=== PATIENT | female | born 1970 | race Caucasian/White ===

== ENCOUNTER 2024-05-31 10:02 | Emergency (ER) | payer SELFPAY ==
--- NOTE | 2024-05-31 11:31 | RAD REPORT ---
EXAM DESCRIPTION: CT - Spine Lumbar Wo Con - 05/31/2024 10:37 am CLINICAL HISTORY: PAIN COMPARISON: No comparisons TECHNIQUE: Axial noncontrast CT imaging of the lumbar spine was performed with coronal and sagittal re-formatted images. All CT scans are performed using dose optimization technique as appropriate and may include automated exposure control or mA/KV adjustment according to patient size. FINDINGS: No acute lumbar spine fracture seen. No aggressive marrow pattern or malalignment. Paraspinal tissues are normal in thickness. No paraspinal abscess or hematoma seen. Intervertebral disc disease assessment is inherently limited by CT. Within these limitations, no high -grade canal stenosis suspected. Multilevel lower lumbar degenerative changes are present with modera te advanced degrees of disc height loss at L3-4 through L5-S1. Minimal anterolisthesis of L5 over S1 measuring 3 mm. [id number] degrees of neural foraminal narrowing at those levels, most pronounc ed at L5-S1 bilaterally due to discogenic and facet changes. IMPRESSION: No acute lumbar spine fracture or subluxation. Multilevel degenerative changes of the lower lumbar spine as above, most pronounced at L5-S1 contribu ting to up to moderate bilateral neural foraminal narrowing. Please consider MRI follow-up for assessment of disc disease and involvement of the neural structures if clinically desired.
[2024-05-31 13:45] LABS: Absolute Basophils 0.1 K/uL (0-0.5); Absolute Eosinophils 0.3 K/uL (0-0.5); Absolute Lymphocytes (CBC) 1.6 K/uL (0.7-4.9); Absolute Monocytes 0.5 K/uL (0.1-1.3); Absolute Neutrophil 3.3 K/uL (1.8-8.0); Basophils % 1.3 % (0-1.3); Eosinophils % 5.2 % (0-4.4); Hematocrit 39.5 % (36.0-45.0); Lymphocytes % 27.5 % (15.3-44.8); MCH 28.7 pg (27.0-35.0); MCHC 32.8 g/dL (32.0-36.0); MCV 87.6 fL (80-100); Monocytes % 9.4 % (3.3-12.3); Neutrophils % 56.6 % (41.7-73.7); Nucleated Red Blood Cells % 0.1 % (0-0); Platelets 286 thou/uL (152-406); RBC Red Blood Cell Count 4.52 M/uL (3.86-4.86)
[2024-05-31] MEDS ORDERED: NA CHLORIDE 0.9% 1,000 ML ONE ×2 (13:46→16:14)
[2024-05-31] MEDS ORDERED: CEFTRIAXONE 2000 MG/VIAL ONE (13:46)
[2024-05-31] MEDS ORDERED: NA CHLORIDE 0.9% 100 ML ONE (13:46)
[2024-05-31] MEDS ORDERED: KETOROLAC 30 MG/ML INJ ONE (13:46)
[2024-05-31 14:02] LABS: ALT/SGPT 24 U/L (13-56); Albumin 3.4 g/dL (3.4-5.0); Albumin/Globulin Ratio 0.9 (1.1-1.8); Alkaline Phosphatase 64 U/L (45-117); Anion Gap 6.9 mEq/L (5.0-15.0); BUN Blood Urea Nitrogen 14 mg/dL (7-18); Bicarbonate 28 mEq/L (21-32); Bilirubin Total 0.3 mg/dL (0.2-1.0); Glomerular Filtration Rate 68 ml/min (=/>90); Glucose Level 275 mg/dL (74-106); Potassium 2.9 mEq/L (3.5-5.1); Protein, Total 7.4 g/dL (6.4-8.2); Sodium Level 139 mEq/L (136-145)
[2024-05-31 14:04] LABS: AST/SGOT < 10 U/L (15-37)
--- NOTE | 2024-05-31 14:32 | RAD REPORT ---
EXAM DESCRIPTION: CTAbdomen Pelvis W Contrast - 05/31/2024 2:20 pm CLINICAL HISTORY: Abdominal pain. FLANK PAIN COMPARISON: Spine Lumbar Wo Con dated 05/31/2024 TECHNIQUE: CT imaging of the abdomen and pelvis was performed with 100 ml non-ionic IV contrast. All CT scans are performed using dose optimization technique as appropriate and may include automated exposure control or mA/KV adjustment according to patient size. FINDINGS: The lung bases are clear. The liver is prominent in size with significant fatty infiltration. Cholelithiasis. Spleen, pancreas, adrenal glands are unremarkable. Stones are present in both kidneys with air also seen in the pelvicaliceal systems. Largest stone on the right inferiorly located measuring 9 mm. No hydronephrosis. There is also present in the urinary bladder. No bowel obstruction, free air, free fluid or abscess. Moderate fat containing umbilical hernia. The appendix is normal. No evidence of significant lymphadenopathy. No suspicious bony findings. IMPRESSION: Air is present in the urinary bladder is well as both ureters and pelvicaliceal system s uggesting ascending urinary tract infection. Bilateral renal stones are present without hydronephrosis. Fatty liver.
--- NOTE | 2024-05-31 15:08 | EDPHYS ---
Physician Documentation [facility] Name: Lois Severino Age: 53 yrs Sex: Female : 1970 Arrival Date: 05/31/2024 Time: 10:02 Bed 8 Private MD: JAZMIN Physician Dieter Varghese HPI: 05/31 14:59 This 53 yrs old Female presents to ER via Wheelchair with complaints of Low halima Back Pain - work related. 14:59 The patient presents with pain that is acute, with no known mechanism of injury. The halima symptoms are located in the lumbar area, left low back, left mid back, right mid back and right low back. The pain does not radiate. The problem was sustained from unknown cause. Onset: The symptoms/episode began/occurred 3 day(s) ago. Modifying factors: The patient symptoms are alleviated by nothing, the patient symptoms are aggravated by any movement. Associated signs and symptoms: The patient has no apparent associated signs or symptoms. Severity of symptoms: At their worst the symptoms were mild, moderate, in the emergency department the symptoms are unchanged. The patient has not experienced similar symptoms in the past. Historical: - Allergies: 10:50 Codeine; ll1 10:50 Elizabeth; ll1 10:50 tuna; ll1 - PMHx: 10:50 Diabetes mellitus; hyperc; ll1 - Immunization history:: Adult Immunizations up to date. - Infectious Disease History:: Denies. - Social history:: Smoking status: Patient denies any tobacco usage or history of. - Family history:: not pertinent. ROS: 14:59 Constitutional: Negative for fever, chills, and weight loss, Eyes: Negative for injury, halima pain, redness, and discharge, ENT: Negative for injury, pain, and discharge, Neck: Negative for injury, pain, and swelling, Cardiovascular: Negative for chest pain, palpitations, and edema, Respiratory: Negative for shortness of breath, cough, wheezing, and pleuritic chest pain, Abdomen/GI: Negative for abdominal pain, nausea, vomiting, diarrhea, and constipation, : Negative for injury, bleeding, discharge, and swelling, MS/Extremity: Negative for injury and deformity, Skin: Negative for injury, rash, and discoloration, Neuro: Negative for headache, weakness, numbness, tingling, and seizure, Psych: Negative for depression, anxiety, suicide ideation, homicidal ideation, and hallucinations, Allergy/Immunology: Negative for hives, rash, and allergies, Endocrine: Negative for neck swelling, polydipsia, polyuria, polyphagia, and marked weight changes, Hematologic/Lymphatic: Negative for swollen nodes, abnormal bleeding, and unusual bruising, 14:59 Back: Positive for decreased range of motion, pain at rest, pain with movement, Exam: 14:59 Constitutional: This is a well developed, well nourished patient who is awake, alert, halima and in no acute distress. Head/Face: Normocephalic, atraumatic. Eyes: Pupils equal round and reactive to light, extra-ocular motions intact. Lids and lashes normal. Conjunctiva and sclera are non-icteric and not injected. Cornea within normal limits. Periorbital areas with no swelling, redness, or edema. ENT: Nares patent. No nasal discharge, no septal abnormalities noted. Tympanic membranes are normal and external auditory canals are clear. Oropharynx with no redness, swelling, or masses, exudates, or evidence of obstruction, uvula midline. Mucous membranes moist. Neck: Trachea midline, no thyromegaly or masses palpated, and no cervical lymphadenopathy. Supple, full range of motion without nuchal rigidity, or vertebral point tenderness. No Meningismus. Chest/axilla: Normal chest wall appearance and motion. Nontender with no deformity. No lesions are appreciated. Cardiovascular: Regular rate and rhythm with a normal S1 and S2. No gallops, murmurs, or rubs. Normal PMI, no JVD. No pulse deficits. Respiratory: Lungs have equal breath sounds bilaterally, clear to auscultation and percussion. No rales, rhonchi or wheezes noted. No increased work of breathing, no retractions or nasal flaring. Abdomen/GI: Soft, non-tender, with normal bowel sounds. No distension or tympany. No guarding or rebound. No evidence of tenderness throughout. Back: No spinal tenderness. No costovertebral tenderness. Full range of motion. Female : Normal external genitalia. Skin: Warm, dry with normal turgor. Normal color with no rashes, no lesions, and no evidence of cellulitis. MS/ Extremity: Pulses equal, no cyanosis. Neurovascular intact. Full, normal range of motion. Neuro: Awake and alert, GCS 15, oriented to person, place, time, and situation. Cranial nerves II-XII grossly intact. Motor strength 5/5 in all extremities. Sensory grossly intact. Cerebellar exam normal. Normal gait. Psych: Awake, alert, with orientation to person, place and time. Behavior, mood, and affect are within normal limits. 14:59 Musculoskeletal/extremity: Circulation is intact in all extremities. Sensation intact. Compartment Syndrome exam of affected extremity: is normal. Weight bearing: able to fully bear weight, DVT Exam: No signs of deep vein thrombosis. no pain, no swelling, no tenderness, negative Homans' sign noted on exam, no appreciated bluish discoloration, no erythema, no increased warmth, Vital Signs: 10:49 BP 125 / 86; Pulse 76; Resp 17; Temp 98.3; Pulse Ox 98% ; Weight 117.93 kg; Height 5 ll1 ft. 4 in. ; Pain 8/10; 13:00 BP 132 / 78; Pulse 76; Resp 18; Pulse Ox 99% on R/A; ph 14:30 BP 121 / 68; Pulse 76; Resp 18; Pulse Ox 97% on R/A; ph 16:00 BP 112 / 68; Pulse 74; Resp 16; Pulse Ox 99% on R/A; ph 17:22 BP 117 / 71; Pulse 71; Resp 18; Pulse Ox 98% on R/A; ph 10:49 Body Mass Index 44.63 (117.93 kg, 162.56 cm) ll1 10:49 Pain Scale: Adult ll1 MDM: 10:14 Patient medically screened. halima 15:02 Differential diagnosis: strain, fracture, sciatica, contusion, Herniated disc UTI. Data [facility] reviewed: vital signs, nurses notes, lab test result(s), radiologic studies, CT scan. Consideration of Admission/Observation Escalation of care including admission/observation considered. I considered the following discharge prescriptions or medication management in the emergency department Medications were administered in the Emergency Department. See MAR. Independent interpretation of the following test(s) in the Emergency Department CT Scan: My interpretation is ct lumbar , ct ab/pel with iv. Test considered but Not performed: Ultrasound no renal usg. Historians other than the Patient: Friend: sig friend. Care significantly affected by the following chronic conditions: Diabetes, Obesity. Counseling: I had a detailed discussion with the patient and/or guardian regarding the historical points, exam findings, and any diagnostic results supporting the discharge/admit diagnosis, lab results, radiology results, the need for further work-up and treatment in the hospital. 05/31 10:16 Order name: CBC with Diff; Complete Time: 14:03 [facility] 05/31 10:16 Order name: Comprehensive Metabolic Panel; Complete Time: 14:54 [facility] 05/31 10:16 Order name: Urinalysis w/ reflexes; Complete Time: 15:20 [facility] 05/31 10:16 Order name: PREGU; Complete Time: 15:20 [facility] 05/31 12:05 Order name: Urine Culture [facility] 05/31 12:10 Order name: Blood Culture Adult (2) [facility] 05/31 12:10 Order name: Lactate w/ 2H reflex if indic.; Complete Time: 14:54 [facility] 05/31 16:04 Order name: Ghost Lactate-NO COLLECT Timer; Complete Time: 16:07 [facility] 05/31 16:42 Order name: Lactate Sepsis 2 HR Follow-up [facility] 05/31 10:16 Order name: CT Lumbar Spine Wo Con; Complete Time: 12:09 [facility] 05/31 12:55 Order name: CT Abd/Pelvis - IV Contrast Only; Complete Time: 15:45 [facility] 05/31 16:09 Order name: Callahan; Complete Time: 17:22 [facility] Administered Medications: 15:00 Drug: NS 0.9% IV 1000 ml IV at 1 bolus Per protocol; 1000 mL bolus Route: IV; Rate: 1 ph bolus; Site: right antecubital; 16:30 Follow up: Response: No adverse reaction; IV Status: Completed infusion; IV Intake: ph 500ml 15:00 Drug: Ketorolac IVP 30 mg IVP once Route: IVP; Site: right antecubital; ph 15:30 Follow up: Response: No adverse reaction ph 15:00 Drug: Rocephin IV 2 grams IV at per protocol once; Given slow IV push per pharmarcy ph instructions Route: IV; Rate: per protocol; Site: right antecubital; 15:45 Follow up: Response: No adverse reaction; IV Status: Completed infusion ph 15:30 Not Given (Patient Refused): ondansetron 4 mg IVP once; over 2 minutes ll1 15:30 Not Given (Patient Refused): hydromorphone1 mg IVP once ll1 15:30 Not Given (Patient Refused): ondansetron 4 mg IVP once; over 2 minutes ll1 17:22 Drug: levofloxacin IVPB 750 mg 150 ml IVPB once over 90 mins Volume: 150 ml; Route: ph IVPB; Infused Over: 90 mins; Site: right antecubital; 19:16 Follow up: Response: No adverse reaction; IV Status: Infusion continued upon transfer ph 17:22 Drug: NS 0.9% IV 1000 ml IV at 1 bolus Per protocol; 1000 mL bolus Route: IV; Rate: 1 ph bolus; Site: right antecubital; 19:16 Follow up: Response: No adverse reaction; IV Status: Infusion continued upon transfer ph 17:22 Drug: Potassium PO Effervescent Tablet 50 mEq PO once; dissolve in 4 ounces of water or ph juice Route: PO; 19:16 Follow up: Response: No adverse reaction ph 17:22 Drug: NS 0.9% with KCl IV 20 mEq/L 1000 ml IV at 125 ml/hr continuous Route: IV; Rate: ph 125 ml/hr; Site: right antecubital; 19:16 Follow up: IV Status: Infusion continued upon transfer ph Disposition Summary: 05/31/24 15:48 Transfer Ordered Notes: Transfer Location: [facility] halima Reason: Higher level of care halima Condition: Fair(05/31/24 15:48) halima Problem: new(05/31/24 15:48) halima Symptoms: have improved(05/31/24 15:48) halima Accepting Physician: to [facility](05/31/24 19:03) ld1 Diagnosis - UTI/ Urinary tract infection, site not specified(05/31/24 15:48) halima - Pyelonephritis acute - emphysematous (05/31/24 15:48) halima - Hypokalemia(05/31/24 15:48) halima - Obesity, unspecified(05/31/24 15:48) halima Forms: - Medication Reconciliation Form halima - SBAR form halima Signatures: Dispatcher [employer] EDDieter Ridley MD MD cha Attema, Lee, AIRLINE CUSTOMER SERVICE AGENT-C AIRLINE CUSTOMER SERVICE AGENT-Cla1 Renetta Mendez RN RN Janel Bergman RN RN ll1 Torre, Orquidea, RN RN ld1 Corrections: (The following items were deleted from the chart) 10:16 10:16 CBC+H.LAB.BRZ ordered. EDMS EDMS 10:16 10:16 COMPREHENSIVE METABOLIC PANEL+C.LAB.BRZ ordered. EDMS EDMS 10:16 10:16 Urinalysis+U.LAB.BRZ ordered. EDMS EDMS 10:16 10:16 Test, Urine+UC.LAB.BRZ ordered. EDMS EDMS 10:17 10:16 Spine Lumbar Wo Con+CT.RAD.BRZ ordered. EDMS EDMS 12:55 12:55 Abdomen Pelvis W Con+CT.RAD.BRZ ordered. EDMS EDMS 15:46 15:07 Observation halima halima 15:46 15:07 Zhao Brito counts include 234 beds at the [facility] 15:46 15:07 Telemetry/MedSurg (observation) [facility] halima 15:46 15:07 Fair halima halima 15:46 15:07 new counts include 234 beds at the [facility] 15:46 15:07 have improved counts include 234 beds at the [facility] 15:46 15:07 Standard [facility] halima 15:46 15:07 [facility] halima 15:46 15:07 UTI/ Urinary tract infection, site not specified counts include 234 beds at the [facility] 15:46 15:07 Pyelonephritis acute - emphysemaous pyelo counts include 234 beds at the [facility] 15:46 15:07 Obesity, unspecified counts include 234 beds at the [facility] 15:46 15:21 Hypokalemia counts include 234 beds at the [facility] 19:03 15:[address] [facility] halima ld1
--- NOTE | 2024-05-31 15:08 | ER ---
Nurse's Notes [facility] Name: Lois Severino Age: 53 yrs Sex: Female : 1970 Arrival Date: 05/31/2024 Time: 10:02 Bed 8 Private MD: Diagnosis: UTI/ Urinary tract infection, site not specified;Pyelonephritis acute-emphysematous ;Hypokalemia;Obesity, unspecified Presentation: 05/31 10:49 Chief complaint: Patient states: Back pain. Coronavirus screen: Client denies travel ll1 out of the [place] in the last 14 days. At this time, the client does not indicate any symptoms associated with coronavirus-19. Ebola Screen: Patient denies travel to an Ebola-affected area in the 21 days before illness onset. Initial Sepsis Screen: Does the patient meet any 2 criteria? No. Patient's initial sepsis screen is negative. Does the patient have a suspected source of infection? No. Patient's initial sepsis screen is negative. Risk Assessment: Do you want to hurt yourself or someone else? Patient reports no desire to harm self or others. Onset of symptoms was May 31, 2024. 10:49 Method Of Arrival: Wheelchair ll1 10:49 Acuity: JAMESON 3 ll1 Historical: - Allergies: 10:50 Codeine; ll1 10:50 [place]; ll1 10:50 tuna; ll1 - PMHx: 10:50 Diabetes mellitus; hyperc; ll1 - Immunization history:: Adult Immunizations up to date. - Infectious Disease History:: Denies. - Social history:: Smoking status: Patient denies any tobacco usage or history of. - Family history:: not pertinent. Screenin:34 Abuse screen: Denies threats or abuse. Denies injuries from another. Nutritional ph screening: No deficits noted. 17:23 [facility] ED Fall Risk Assessment (Adult) History of falling in the last 3 months, ph including since admission No falls in past 3 months (0 pts) Confusion or Disorientation No (0 pts) Intoxicated or Sedated No (0 pts) Impaired Gait No (0 pts) Mobility Assist Device Used No (0 pt) Altered Elimination No (0 pt) Score/Fall Risk Level 0 - 2 = Low Risk Oriented to surroundings, Maintained a safe environment, Provided non-skid footwear. Tuberculosis screening: No symptoms or risk factors identified. Assessment: 13:00 General: Appears in no apparent distress. Behavior is calm, cooperative. Pain: ph Complains of pain in lumbar area. Neuro: Level of Consciousness is awake, alert, obeys commands, Oriented to person, place, time, situation. GI: No signs and/or symptoms were reported involving the gastrointestinal system. : No signs and/or symptoms were reported regarding the genitourinary system. Derm: Skin is pink, warm \T\ dry. Vital Signs: 10:49 BP 125 / 86; Pulse 76; Resp 17; Temp 98.3; Pulse Ox 98% ; Weight 117.93 kg; Height 5 ll1 ft. 4 in. ; Pain 8/10; 13:00 BP 132 / 78; Pulse 76; Resp 18; Pulse Ox 99% on R/A; ph 14:30 BP 121 / 68; Pulse 76; Resp 18; Pulse Ox 97% on R/A; ph 16:00 BP 112 / 68; Pulse 74; Resp 16; Pulse Ox 99% on R/A; ph 17:22 BP 117 / 71; Pulse 71; Resp 18; Pulse Ox 98% on R/A; ph 10:49 Body Mass Index 44.63 (117.93 kg, 162.56 cm) ll1 10:49 Pain Scale: Adult ll1 ED Course: 10:06 Patient arrived in ED. ra3 10:14 Dieter Varghese MD is Attending Physician. halima 10:36 CT Lumbar Spine Wo Con In Process Unspecified. EDMS 10:50 Triage completed. ll1 10:51 Arm band placed on. ll1 12:23 Renetta Mendez, SIRENA is Primary Nurse. ph 13:35 Initial lab(s) drawn, by ut, sent to lab. Inserted saline lock: 22 gauge in right ph antecubital area, using aseptic technique. Blood collected. Flushed with 10 mL NS. 14:22 CT Abd/Pelvis - IV Contrast Only In Process Unspecified. EDMS 15:06 Zhao Brito MD is Hospitalizing Provider. halima 15:[address] [facility]. bd 16:25 pt accepted in transfer to [facility] by dr Urban admin approval given by Johnnie Fontenot. pt going to A 505. 17:15 Callahan cath inserted, using sterile technique, 16 Fr., by ED staff, balloon inflated, to ph gravity drainage, returned clear yellow urine. Patient tolerated well. 17:24 Patient has correct armband on for positive identification. Door closed. Noise ph minimized. Warm blanket given. 17:26 No provider procedures requiring assistance completed. Patient transferred, IV remains ph in place. 17:53 pt to be transported by [facility]. bd Administered Medications: 15:00 Drug: NS 0.9% IV 1000 ml IV at 1 bolus Per protocol; 1000 mL bolus Route: IV; Rate: 1 ph bolus; Site: right antecubital; 16:30 Follow up: Response: No adverse reaction; IV Status: Completed infusion; IV Intake: ph 500ml 15:00 Drug: Ketorolac IVP 30 mg IVP once Route: IVP; Site: right antecubital; ph 15:30 Follow up: Response: No adverse reaction ph 15:00 Drug: Rocephin IV 2 grams IV at per protocol once; Given slow IV push per goBrambleWandrian ph instructions Route: IV; Rate: per protocol; Site: right antecubital; 15:45 Follow up: Response: No adverse reaction; IV Status: Completed infusion ph 15:30 Not Given (Patient Refused): ondansetron 4 mg IVP once; over 2 minutes ll1 15:30 Not Given (Patient Refused): hydromorphone1 mg IVP once ll1 15:30 Not Given (Patient Refused): ondansetron 4 mg IVP once; over 2 minutes ll1 17:22 Drug: levofloxacin IVPB 750 mg 150 ml IVPB once over 90 mins Volume: 150 ml; Route: ph IVPB; Infused Over: 90 mins; Site: right antecubital; 19:16 Follow up: Response: No adverse reaction; IV Status: Infusion continued upon transfer ph 17:22 Drug: NS 0.9% IV 1000 ml IV at 1 bolus Per protocol; 1000 mL bolus Route: IV; Rate: 1 ph bolus; Site: right antecubital; 19:16 Follow up: Response: No adverse reaction; IV Status: Infusion continued upon transfer ph 17:22 Drug: Potassium PO Effervescent Tablet 50 mEq PO once; dissolve in 4 ounces of water or ph juice Route: PO; 19:16 Follow up: Response: No adverse reaction ph 17:22 Drug: NS 0.9% with KCl IV 20 mEq/L 1000 ml IV at 125 ml/hr continuous Route: IV; Rate: ph 125 ml/hr; Site: right antecubital; 19:16 Follow up: IV Status: Infusion continued upon transfer ph Medication: 17:25 VIS not applicable for this client. ph Intake: 16:30 IV: 500ml; Total: 500ml. ph Outcome: 15:07 Decision to Hospitalize by Provider. [facility] 15:48 ER care complete, transfer ordered by . [facility] 18:11 Transferred by ground EMS to [facility], Transfer form completed. ph X-rays sent w/ patient. 18:11 Condition: stable 18:11 Instructed on the need for transfer, 19:03 Patient left the ED. ld1 Signatures: Dispatcher [employer] EDMS Yokasta Duckworth Corey, MD MD cha Hall, Patricia, RN RN ph Lewis, Lynsay, RN RN 1 Orquidea Torre RN RN ld1 Stacy Loera
[2024-05-31 15:19] LABS: Urine Bacteria None Seen /HPF (<20); Urine Bilirubin NEGATIVE (Negative); Urine Blood 2+ (Negative); Urine Clarity Extremely Turbid (Clear); Urine Color Light-Orange (Yellow); Urine Crystals Unidentified Few /HPF (None Seen); Urine Culture Reflex Order REFLEXED; Urine Glucose 4+ (Over) (Negative); Urine Ketones NEGATIVE (Negative); Urine Microscopic Reflex YN ORDER UMIC; Urine Mucus Slight /HPF (None Seen); Urine Nitrite 1+ (Negative); Urine Protein 1+ (Negative); Urine Urobilinogen Normal (Normal); Urine WBC >50 /HPF (<5); Urine WBC Clump Rare /HPF (None Seen)
[2024-05-31] MEDS ORDERED: NS KCL 20MEQ 1,000 ML IV ONE (16:14)
[2024-05-31] MEDS ORDERED: POTASSIUM 25 MEQ EFFERV TAB ONE (16:14)
[2024-05-31] MEDS ORDERED: Levofloxacin 750mg IV 750 MG/150 ML BAG IV ONE (16:14)
[2024-05-31] MEDS ORDERED: ONDANSETRON 4 MG/2 ML VIAL ONE (18:29)
[2024-06-01 02:23] VITALS: TEMP 98.3; O2SAT 98
[2024-06-01 02:24] VITALS: BP 117/71
== END 2024-05-31 19:03 | disposition short-term general hospital (02) ==
LOC: ER 10:02
DX: N39.0 Urinary tract infection, site not specified (principal); N10 Acute pyelonephritis; E87.6 Hypokalemia; E66.9 Obesity, unspecified; Z68.41 Body mass index [BMI] 40.0-44.9, adult
CPT/HCPCS: 36415; 51702; 72131; 74177; 80053; 81001; 81025; 83605; 85025; 87040; 87077; 87086; 87088; 87186; 96361; 96365; 96366; 96367; 96375; 99285; J0696; J2405; J3480; J7030; Q9967

== ENCOUNTER 2025-08-28 17:03 | Emergency (ER) | payer BC, OTHER ==
[2025-08-28 19:24] LABS: Absolute Lymphocytes (CBC) 2.2 K/uL (0.7-4.9); Hematocrit 46.9 % (36.0-45.0); Hemoglobin 15.4 g/dL (12.0-15.0); MCH 28.4 pg (27.0-35.0); MCHC 32.9 g/dL (32.0-36.0); MCV 86.5 fL (80-100); MPV 9.1 fL (7.6-11.3); Nucleated RBC Absolute Count 0.0 (0-0); Nucleated Red Blood Cells % 0.1 % (0-0); RBC Red Blood Cell Count 5.42 M/uL (3.86-4.86); White Blood Count 8.40 thou/uL (4.3-10.9)
[2025-08-28 19:46] LABS: ALT/SGPT 27.0 U/L (13-56); AST/SGOT 14.0 U/L (15-37); Albumin 3.7 g/dL (3.4-5.0); Albumin/Globulin Ratio 1.1 (1.1-1.8); Alkaline Phosphatase 58.0 U/L (45-117); Anion Gap 8.7 mEq/L (5.0-15.0); BUN Blood Urea Nitrogen 16.0 mg/dL (7-18); Globulin 3.3 g/dL (2.3-3.5); Glucose Level 85.0 mg/dL (74-106); Lipase 26.0 U/L (13-75); Potassium 3.7 mEq/L (3.5-5.1)
[2025-08-28] MEDS ORDERED: KETOROLAC 30 MG/ML INJ ONE (19:59)
[2025-08-28] MEDS ORDERED: NA CHLORIDE 0.9% 1,000 ML ONE (19:59)
[2025-08-28] MEDS ORDERED: ONDANSETRON 4 MG/2 ML VIAL ONE (19:59)
--- NOTE | 2025-08-28 20:00 | RAD REPORT ---
EXAM: Right upper quadrant ultrasound. CLINICAL HISTORY: ABD PAIN COMPARISON: None. FINDINGS: Gallbladder: Large shadowing gallstone. Bile ducts: No intrahepatic or extrahepatic biliary dilatation. Common bile duct measures 5 mm. Limited imaging of the liver shows no concerning finding. IMPRESSION: Cholelithiasis.
--- NOTE | 2025-08-28 20:18 | ER ---
Nurse's Notes [facility] Name: Lois Severino Age: 54 yrs Sex: Female : 1970 Arrival Date: 08/28/2025 Time: 17:03 Bed 15 Private MD: Diagnosis: Other cholelithiasis without obstruction Presentation: 08/28 17:36 Chief complaint: Patient states: Vomiting after eating x months, CT noted multiple jl7 gallstones. Coronavirus screen: At this time, the client does not indicate any symptoms associated with coronavirus-19. Ebola Screen: No symptoms or risks identified at this time. Initial Sepsis Screen: Does the patient meet any 2 criteria? No. Patient's initial sepsis screen is negative. Does the patient have a suspected source of infection? No. Patient's initial sepsis screen is negative. Risk Assessment: Do you want to hurt yourself or someone else? Patient reports no desire to harm self or others. Onset of symptoms is unknown. 17:36 Method Of Arrival: Ambulatory [facility] 17:36 Acuity: JAMESON 3 jl7 Triage Assessment: 17:39 General: Appears in no apparent distress. uncomfortable, Behavior is calm, cooperative, jl7 appropriate for age. Pain: Complains of pain in right upper quadrant Pain radiates to posterior aspect of right lateral abdomen. GI: Reports nausea, vomiting. 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 - Infectious Disease History:: Denies. - Social history:: Smoking status: unknown. Screenin:05 [facility] ED Fall Risk Assessment (Adult) History of falling in the last 3 months, me1 including since admission No falls in past 3 months (0 pts) Confusion or Disorientation No (0 pts) Intoxicated or Sedated No (0 pts) Impaired Gait No (0 pts) Mobility Assist Device Used No (0 pt) Altered Elimination No (0 pt) Score/Fall Risk Level 0 - 2 = Low Risk Maintained a safe environment, Provided non-skid footwear, Hourly rounding (assess needs \T\ fall precautionary measures) done. Abuse screen: Denies threats or abuse. Nutritional screening: No deficits noted. Tuberculosis screening: No symptoms or risk factors identified. Assessment: 19:05 General: Appears uncomfortable, obese, well groomed, well developed, Behavior is calm, me1 cooperative, appropriate for age, Reports Vomiting after eating x months, CT noted multiple gallstones. Pain: Complains of pain in right upper quadrant Pain radiates to posterior aspect of right lateral abdomen Pain currently is 5 out of 10 on a pain scale. Quality of pain is described as sharp, stabbing, Pain began suddenly, Is intermittent, episodic, Aggravated by eating. Neuro: Level of Consciousness is awake, alert, obeys commands, Oriented to person, place, time, situation, Appropriate for age. Cardiovascular: Patient's skin is warm and dry. Respiratory: Airway is patent Respiratory effort is even, unlabored, Respiratory pattern is regular, symmetrical. GI: Abdomen is obese, Reports upper abdominal pain, nausea, vomiting. : No signs and/or symptoms were reported regarding the genitourinary system. EENT: No signs and/or symptoms were reported regarding the EENT system. Derm: Skin is intact, is healthy with good turgor, Skin is normal. Musculoskeletal: Circulation, motion, and sensation intact. Range of motion: intact in all extremities. Vital Signs: 17:36 BP 151 / 96; Pulse 73; Resp 17; Temp 97.1; Pulse Ox 95% ; jl7 19:00 BP 136 / 82; Pulse 65; Resp 16; Pulse Ox 96% ; me1 20:00 BP 106 / 87; Pulse 71; Resp 16; Pulse Ox 97% ; me1 20:30 BP 140 / 81; Pulse 81; Resp 15; Temp 98.2; Pulse Ox 97% ; me1 ED Course: 17:06 Patient arrived in ED. al6 17:08 Ksenia Pimentel FNP-C [facility]. kb 17:08 Eren Torre DO is Attending Physician. kb 17:39 Triage completed. jl7 18:47 Tiffanie Lezama, RN is Primary Nurse. me1 19:05 No provider procedures requiring assistance completed. me1 19:05 Patient has correct armband on for positive identification. Bed in low position. Call me1 light in reach. Side rails up X2. Provided Education on: POC. Verbalized understanding.. Client placed on continuous cardiac and pulse oximetry monitoring. NIBP monitoring applied. Pulse ox on. NIBP on. 19:16 Initial lab(s) drawn, Lab(s) recollected, by me, sent to lab. Inserted saline lock: 22 me1 gauge in right antecubital area, using aseptic technique. 19:52 US Abdomen Limited In Process Unspecified. EDMS 20:40 IV discontinued, intact, bleeding controlled, No redness/swelling at site. Pressure me1 dressing applied. Administered Medications: 20:05 Drug: NS 0.9% IV 1000 ml IV at 1000 ml once; to be given as a bolus over 60 minutes me1 Route: IV; Rate: 1000 ml; Site: right antecubital; 20:36 Follow up: Response: No adverse reaction; IV Status: Completed infusion me1 20:05 Drug: Ondansetron IVP 4 mg IVP once; over 2 minutes Route: IVP; Site: right antecubital;me1 20:25 Follow up: Response: No adverse reaction; Nausea is decreased me1 20:05 Drug: Ketorolac IVP 15 mg IVP once Route: IVP; Site: right antecubital; me1 20:25 Follow up: Response: No adverse reaction; Pain is unchanged, physician notified me1 Medication: 19:05 VIS not applicable for this client. me1 Outcome: 20:17 Discharge ordered by MD. ferguson 20:40 Discharged to home ambulatory, with significant other, me1 20:40 Condition: stable 20:40 Discharge instructions given to patient, significant other, Instructed on discharge instructions, follow up and referral plans. Demonstrated understanding of instructions, follow-up care, 20:41 Patient left the ED. me1 Signatures: Dispatcher [employer] EDMS Ksenia Pimentel, CANDIDA ROSSIP-Kenny Rivera RN RN jl7 Tiffanie Lezama RN RN me1 Caty Keys6 Corrections: (The following items were deleted from the chart) 19:31 17:36 Chief complaint: Patient states: Vomiting after eating x months, CT noted me1 multiple gallstones jl7
--- NOTE | 2025-08-28 20:18 | EDPHYS ---
Physician Documentation [facility] Name: Lois Severino Age: 54 yrs Sex: Female : 1970 Arrival Date: 08/28/2025 Time: 17:03 Bed 15 Private MD: ED Physician Eren Torre HPI: 08/28 17:34 This 54 yrs old Female presents to ER via Unassigned with complaints of Vomiting, kb Abdominal Pain, Back Pain. 17:34 Pt is a 54 year old female who presents for upper abd pain that radiates to the back, kb nausea and vomiting that started months ago. Went to PCP today and was told she needed to come to the ER for gallstones. Reports slight fever for a day and a half that resolved last night. 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 - Infectious Disease History:: Denies. - Social history:: Smoking status: unknown. ROS: 20:16 Constitutional: As per HPI kb Exam: 20:16 Constitutional: This is a well developed, well nourished patient who is awake, alert, kb and in no acute distress. Head/Face: Normocephalic, atraumatic. ENT: Moist Mucous membranes Cardiovascular: Regular rate Respiratory: Respirations even and unlabored. No increased work of breathing. Talking in full sentences Skin: Warm, dry with normal turgor. Normal color. MS/ Extremity: Pulses equal, no cyanosis. Neurovascular intact. Full, normal range of motion. Neuro: Awake and alert, GCS 15, oriented to person, place, time, and situation. 20:16 Abdomen/GI: Inspection: abdomen appears normal, Bowel sounds: normal, Palpation: soft, in all quadrants, mild abdominal tenderness, in the right upper quadrant, Vital Signs: 17:36 BP 151 / 96; Pulse 73; Resp 17; Temp 97.1; Pulse Ox 95% ; jl7 19:00 BP 136 / 82; Pulse 65; Resp 16; Pulse Ox 96% ; me1 20:00 BP 106 / 87; Pulse 71; Resp 16; Pulse Ox 97% ; me1 20:30 BP 140 / 81; Pulse 81; Resp 15; Temp 98.2; Pulse Ox 97% ; me1 MDM: 17:08 Medical Screening Exam initiated kb 20:16 Differential diagnosis: Cholelithiasis, cholecystitis, pancreatitis. Data reviewed: kb vital signs, nurses notes. Consideration of Admission/Observation Escalation of care including admission/observation considered. Admission considered but LFTs normal, patient afebrile, nontoxic in appearance, no signs of cholecystitis on ultrasound. Historians other than the Patient: Family Member: Family. Counseling: I had a detailed discussion with the patient and/or guardian regarding the historical points, exam findings, and any diagnostic results supporting the discharge/admit diagnosis, lab results, radiology results, the need for outpatient follow up, a general surgeon, to return to the emergency department if symptoms worsen or persist or if there are any questions or concerns that arise at home. 08/28 17:43 Order name: CBC with Diff; Complete Time: 19:48 kb 08/28 17:43 Order name: CMP; Complete Time: 19:48 kb 08/28 17:43 Order name: Lipase; Complete Time: 19:48 kb 08/28 17:43 Order name: US Abdomen Limited; Complete Time: 20:09 kb 08/28 17:43 Order name: IV Saline Lock; Complete Time: 19:19 kb 08/28 17:43 Order name: Labs collected and sent; Complete Time: 19:19 kb Administered Medications: 20:05 Drug: NS 0.9% IV 1000 ml IV at 1000 ml once; to be given as a bolus over 60 minutes me1 Route: IV; Rate: 1000 ml; Site: right antecubital; 20:36 Follow up: Response: No adverse reaction; IV Status: Completed infusion me1 20:05 Drug: Ondansetron IVP 4 mg IVP once; over 2 minutes Route: IVP; Site: right antecubital;me1 20:25 Follow up: Response: No adverse reaction; Nausea is decreased me1 20:05 Drug: Ketorolac IVP 15 mg IVP once Route: IVP; Site: right antecubital; me1 20:25 Follow up: Response: No adverse reaction; Pain is unchanged, physician notified me1 Disposition: 19:17 I was immediately available on-site in the Emergency Department for consultation in the ms3 care of the patient. Disposition Summary: 08/28/25 20:17 Discharge Ordered Notes: Location: Home kb Condition: Stable kb Diagnosis - Other cholelithiasis without obstruction kb Followup: kb - With: Emergency Department - When: As needed - Reason: Worsening of condition Followup: kb - With: Private Physician - When: 2 - 3 days - Reason: Recheck today's complaints, Continuance of care, Re-evaluation by your physician Discharge Instructions: - Discharge Summary Sheet kb - Cholelithiasis, [id number] kb Forms: - Medication Reconciliation Form kb - Antibiotic Education kb - Prescription Opioid Use kb - Patient Portal Instructions kb - Leadership Thank You Letter kb Signatures: Dispatcher [employer] Ksenia Chu FNP-C LUISITO-Kenny Rivera RN RN jl7 Eren Torre DO DO ms3 Tiffanie Lezama RN RN me1
[2025-08-29 03:07] VITALS: O2SAT 97
[2025-08-29 03:09] VITALS: BP 140/81; TEMP 98.2
== END 2025-08-28 20:41 | disposition home or self-care (01) ==
LOC: ER 17:03
DX: K80.80 Other cholelithiasis without obstruction (principal)
CPT/HCPCS: 96361; 85025; 36415; 83690; 80053; 76705; 96375; 96374; 99284; J1885; J2405; J7030